=== PATIENT | male | born 1960 | race Hispanic/Latino ===

== ENCOUNTER 2020-03-25 23:07 | Emergency (ER) | payer SELFPAY | END 2020-03-25 23:45 | disposition left against medical advice (07) | LOC: ED 23:07 | DX: Z76.0 Encounter for issue of repeat prescription (principal); Z53.21 Procedure and treatment not carried out due to patient leaving prior to being seen by health care provider ==

== ENCOUNTER 2020-03-26 07:37 | Emergency (ER) | payer SELFPAY | END 2020-03-26 09:00 | LOC: ED 07:37 | DX: G40.909 Epilepsy, unspecified, not intractable, without status epilepticus (principal); Z53.21 Procedure and treatment not carried out due to patient leaving prior to being seen by health care provider ==

== ENCOUNTER 2020-09-09 10:43 | Inpatient (IN) | payer OTHER ==
[2020-09-09] MEDS ORDERED: levETIRAcetam 1000 MG/NS 0.75% 1,000 MG/100 ML BAG IV ONE ×2 (10:56→11:30)
[2020-09-09] MEDS ORDERED: SODIUM CHLORIDE 0.9% 1000 ML 1,000 ML IV ONE ×3 (11:14→13:53)
[2020-09-09] MEDS ORDERED: SUCCINYLCHOLINE CHLORIDE 200 MG/10 ML INJ MDV IV ONE (11:14)
[2020-09-09] MEDS ORDERED: levETIRAcetam 1,000 MG in SODIUM CHLORIDE 0.9% 100 ML IV ONE (11:17)
--- NOTE | 2020-09-09 11:24 | Emergency Department Report ---
ED Seizure HPI - General Stated Complaint: SEIZURE Time Seen by Provider: 09/09/20 11:12 - History of Present Illness Initial Comments: 59-year-old male, history of seizure disorder, ?liver cirrhosis, presents to ED from [facility] (incarcerated in July 2020, 2 months ago) with status epilepticus. Per EMS, patient has been actively seizing x30 minutes. Patient has received 20 mg of Valium from the [facility]. Upon EMS arrival, patient was still seizing. 2 mg of Ativan IM was given. Patient did require another 2 mg of Ativan from EMS. EMS unable to obtain an IV or IO. Seizures stopped upon ED arrival. O2 sats 91% on nonrebreather. Patient altered. Decision was made to intubate the patient for hypoxia and airway protection. MD Complaint: seizure -: minutes(s) (30) Description of Episode: tonic-clonic movement -: minutes(s) (30) Witnessed:: Yes Seizure History: known seizure disorder Place: other ([facility]) Treatments Prior to Arrival: benzodiazepines - Related Data Allergies Allergy/AdvReac Type Severity Reaction Status Date / Time chocolate flavor Allergy Unknown Verified 09/09/20 14:11 ED Review of Systems ROS: Stated complaint: SEIZURE Other details as noted in HPI Comment: Unobtainable due to pts medical conditions Neurological: other (Seizures reported) ED Physical Exam - General General appearance: obtunded - Head Head exam: Present: atraumatic, normocephalic - Eye Pupils: Present: other (Dilated bilaterally) - ENT ENT exam: Present: mucous membranes moist - Neck Neck exam: Present: normal inspection - Respiratory Respiratory exam: Present: normal lung sounds bilaterally. Absent: respiratory distress - Cardiovascular Cardiovascular Exam: Present: normal rhythm, tachycardia - GI/Abdominal GI/Abdominal exam: Present: soft. Absent: distended - Extremities Exam Extremities exam: Present: normal inspection - Neurological Exam Neurological exam: Present: other ([facility]) - Psychiatric Psychiatric exam: Present: normal affect, normal mood - Skin Skin exam: Present: diaphoretic ED Course Vital Signs 09/09/20 09/09/20 09/09/20 11:07 11:19 11:30 Temperature 97.7 F Pulse Rate 122 H 123 H Respiratory 21 17 Rate Blood Pressure 122/85 122/85 O2 Sat by Pulse 94 92 Oximetry 09/09/20 09/09/20 09/09/20 11:45 12:01 12:15 Temperature Pulse Rate 119 H 114 H 111 H Respiratory 19 18 16 Rate Blood Pressure 96/64 96/64 101/73 O2 Sat by Pulse 98 99 100 Oximetry 09/09/20 09/09/20 09/09/20 12:39 12:45 13:01 Temperature Pulse Rate 105 H 105 H 103 H Respiratory 16 16 Rate Blood Pressure 101/73 114/84 101/73 O2 Sat by Pulse 92 100 100 Oximetry 09/09/20 09/09/20 09/09/20 13:15 13:31 13:45 Temperature Pulse Rate 95 H 106 H 112 H Respiratory 16 18 16 Rate Blood Pressure 119/90 137/86 136/100 O2 Sat by Pulse 100 100 100 Oximetry 09/09/20 09/09/20 09/09/20 14:01 14:15 14:31 Temperature Pulse Rate 107 H 110 H 105 H Respiratory 20 19 24 Rate Blood Pressure 137/98 156/103 163/95 O2 Sat by Pulse 100 100 100 Oximetry 09/09/20 09/09/20 09/09/20 14:45 15:01 15:15 Temperature Pulse Rate 109 H 113 H 120 H Respiratory 22 25 H 19 Rate Blood Pressure 164/98 147/95 148/101 O2 Sat by Pulse 99 99 99 Oximetry 09/09/20 09/09/20 09/09/20 15:31 15:45 16:01 Temperature Pulse Rate 128 H 128 H 129 H Respiratory 16 22 24 Rate Blood Pressure 143/114 156/95 149/95 O2 Sat by Pulse 100 99 Oximetry 09/09/20 09/09/20 09/09/20 16:43 16:47 17:53 Temperature 102.5 F H Pulse Rate 129 H Respiratory 19 Rate Blood Pressure 149/95 O2 Sat by Pulse 99 Oximetry - Central Line Placement Right Femoral Consent Obtained: emergent situation Time Out Performed: Yes Patient Placed on Monitor/Pulse Ox: Yes Prep: mask, gown, gloves Central Line Prep: Chlorhexidine scrub Ultrasound Used for Placement: No Central Line Lumen Inserted: triple Reason for Insertion: Emergency Venous Access Bloods Obtained for Lab: No Central Line Position: good blood return, all ports aspirated, flus, sutured in place with nyl Dressing Applied: Tegaderm Patient Tolerated Procedure: well Complications: none - Intubation Time Out Performed: Yes Sedative: none Paralytic: Succinylcholine Mg Given: 100 Laryngoscope: fiberoptic video scope Size: 4 ET Tube Size: 7.5 Tube Secured Depth (cm): 22 Tube Secured Location: lips Tube Placement Confirmation: visualized tube passing t, equal breath sounds bilat, no breath sounds over epi, confirmation by capnometr Patient Tolerated Procedure: well Intubation Complications: none ED Medical Decision Making - Lab Data Result diagrams: 09/09/20 13:07 09/09/20 13:07 - EKG Data -: EKG Interpreted by Nd EKG shows normal: sinus rhythm, axis, QRS complexes, ST-T waves Rate: normal - EKG Data Interpretation: no acute changes, other (prolonged QT) - Radiology Data Radiology results: report reviewed, image reviewed - Medical Decision Making 59-year-old male presents to ED from [facility] and status epilepticus. History of seizure disorder, on Keppra daily. Patient required multiple doses of Valium and Ativan prior to ED arrival. Patient was intubated for airway protection and hypoxia. Chest x-ray showed left lower lobe opacity. Possible aspiration. CT head, C-spine are unremarkable for any acute findings. Patient given IV Keppra load here in the ED along with IV fluids and antibiotic coverage. Patient afebrile, WBCs of 13.8. Chemistry unremarkable except for elevation in AST and ALT of 304 and 436. EMS did report a history of possible liver cirrhosis as well. Tox screen only positive for benzodiazepines which patient received in the field. Patient currently on propofol drip. He will be admitted to the ICU by hospitalist, Dr. Powell, for further management. - Differential Diagnosis Status epilepticus, electrolyte abnormality, infection, intracranial abnorm Critical Care Time: Yes Critical care time in (mins) excluding proc time.: 35 Critical care attestation.: If time is entered above; I have spent that time in minutes in the direct care of this critically ill patient, excluding procedure time. Critical Care Time: 35 min ED Disposition Clinical Impression: Status epilepticus, Acute respiratory failure with hypoxia Disposition: OP ADMIT IP TO THIS HOSP Is pt being admited?: Yes Condition: Stable Time of Disposition: 14:28
[2020-09-09] MEDS ORDERED: NORepinephrine/NS 4 MG-250 ML 4 MG/250 ML BAG IV SCH (12:00)
--- NOTE | 2020-09-09 12:10 | XRay Report ---
CHEST 1 VIEW INDICATION: post-intubation; seizure. COMPARISON: None FINDINGS: Support devices: An endotracheal tube has been inserted which terminates 4.6 cm superior to the luis angel a. Heart: Within normal limits. Lungs/Pleura: There is patchy infiltrate or atelectasis in the medial left lower lobe. Otherwise the lungs are clear. No pleural effusion or pneumothorax. Additional findings: None. IMPRESSION: Adequate placement of the endotracheal tube. Left lower lobe opacity as described. Signer Name: Stevo Rogel Jr, MD Signed: 09/09/2020 12:05 PM Workstation Name: [id number]
--- NOTE | 2020-09-09 12:54 | Cat Scan Report ---
CT head/brain wo con, CT cervical spine wo con INDICATION: seizure. TECHNIQUE: CT head and cervical spine without contrast. All CT scans at this location are performed u sing CT dose reduction for ALARA by means of automated exposure control. COMPARISON: None. FINDINGS: HEAD: Intracranial: Left frontal encephalomalacia. Blanco-white matter differentiation is maintained. No intr acranial hemorrhage. No extra axial collection.. No hydrocephalus. No herniation. Periventricular and centrum semiovale white matter hypoattenuation most consistent with sequela of chronic microvascular disease. Sinuses: Paranasal sinuses and mastoid air cells are essentially clear. Orbits: Globes are intact Calvarium: Chronic nasal bone fractures. No acute fracture. CERVICAL: Alignment: Normal alignment. Vertebrae: No fracture. Vertebral body heights are preserved. C1 and C2 are congruent. Atlantooccipi aye joint is maintained. Spondylolysis: Moderate multilevel spondylosis. Foraminal narrowing is present at C4-C5. Soft tissues: No prevertebral soft tissue thickening. Additional findings: No significant additional findings. IMPRESSION: 1. No acute intracranial abnormality. 2.No cervical spine fracture. Signer Name: Milton Dooley MD Signed: 09/09/2020 12:50 PM Workstation Name: [id number]
--- NOTE | 2020-09-09 13:01 | History and Physical Report ---
History of Present Illness Chief complaint: He kept having a seizure History of present illness: 59 YO Male with Seizure Disorder presents to ED for evaluation. Patient is intubated and on ventilatory support at the time my evaluation is unable to provide history. Patient history taken from EMS staff, ED staff, as well as [facility] staff. As per staff, the patient experienced intractable seizures today. Patient was taken to the [facility] where he was treated with Valium 20 mg without improvement of symptoms. EMS was notified and upon arrival the patient was found to be in distress with large amount of vomitus in his oropharynx. The patient was subsequently transported to [facility] for further care and evaluation of the aforementioned symptoms. The patient was seen and evaluated in the emergency department. All lab and imaging studies reviewed. Patient was found to be unable to protect his airway and was intubated for airway protection. Patient chest x-ray revealed left-sided pn eumonia suspected secondary to aspiration which is complicated by sepsis as well as acute hypoxemic respiratory failure. The patient was admitted to ICU and initiated on sepsis protocol. No further history is obtainable. No prior admission for review. No medication listed at time of admission reconciliation. Advanced care planning conducted in ED. Past History Past Medical History: seizures Past Surgical History: No surgical history, Other (Unable to obtain) Social history: single. denies: smoking, alcohol abuse, prescription drug abuse Family history: no significant family history, other (Unable to obtain) Medications and Allergies Allergies Allergy/AdvReac Type Severity Reaction Status Date / Time chocolate flavor Allergy Unknown Verified 09/09/20 14:11 Active Meds: Active Medications Norepinephrine (Levophed Drip 4 Mg/Ns 250 Ml) 4 mg in 250 mls @ 7.5 mls/hr IV TITR ARIADNE; Protocol Propofol (Diprivan 10 Mg/Ml) 1,000 mg in 100 mls @ 1.995 mls/hr IV TITR ARIADNE; Protocol Review of Systems ROS unobtainable: due to endotracheal tube, due to mental status Exam - Constitutional Vitals: Temp Pulse Resp BP Pulse Ox 99 09/09/20 11:30 General appearance: Present: mild distress, cachectic, disheveled - EENT Eyes: Present: miosis ENT: hearing decreased - Neck Neck: Present: supple, normal ROM - Respiratory Respiratory effort: labored Respiratory: bilateral: diminished - Cardiovascular Heart Sounds: Present: S1 & S2. Absent: rub, click - Extremities Extremities: pulses symmetrical, No edema Peripheral Pulses: within normal limits - Abdominal General gastrointestinal: Present: soft, non-tender, non-distended, normal bowel sounds Male genitourinary: Present: normal - Integumentary Integumentary: Present: clear, warm, dry - Musculoskeletal Musculoskeletal: generalized weakness - Psychiatric Psychiatric: no appropriate mood/affect, no intact judgment & insight, no memory intact - Neurologic Neurologic: CNII-XII intact, no focal deficits, no moves all extremities, no gait normal Results - Labs CBC & Chem 7: 09/09/20 13:07 09/09/20 13:07 Assessment and Plan - Patient Problems (1) Sepsis Current Visit: Yes Status: Acute Qualifiers: Severe sepsis acute organ dysfunction type: acute respiratory failure Plan to address problem: sepsis protocol: Chest x-ray, CBC, CMP, IV antibiotic therapy, IV fluid resuscitation therapy, monitor urine output every shift, monitor fluid balance, serial lactic acid level, blood cultures., Maintain mean arterial pressure greater than or equal to 65, The high probability of a clinically significant, sudden or life threatening deterioration of the [cardiac, pulmonary, renal, infectious disease] system(s) required my full and direct attention, intervention and personal management. The aggregate critical care time was [95] minutes. This time is in addition to time spent performing reported procedures but includes the following: [x] Data Review and interpretation [x] Patient assessment and monitoring of vital signs [x] Documentation [x] Medication orders and management (2) Acute hypoxemic respiratory failure Current Visit: Yes Status: Acute Plan to address problem: Wean vent as tolerated, daily spontaneous breathing trial, daily arterial blood gas, sedation holiday, chest x-ray, supportive care (3) Aspiration pneumonia Current Visit: Yes Status: Acute Qualifiers: Laterality: left Lung location: lower lobe of lung Plan to address problem: Pneumonia protocol: Chest x-ray, CBC, CMP, IV antibiotic therapy, supplemental oxygen, pulse oximetry, blood culture. (4) Status epilepticus Current Visit: Yes Status: Acute Plan to address problem: IV benzodiazepine therapy, seizure protocol, supportive care. Neuro check. (5) DVT prophylaxis Current Visit: Yes Status: Acute Plan to address problem: SCD to bilateral lower extremities while in bed, prophylactic anticoagulation (6) Advance care planning Current Visit: Yes Status: Acute Plan to address problem: Disease education conducted, care plan discussed, diagnoses discussed, care plan discussed, patient histories discussed, +30 minutes.
[2020-09-09] MEDS ORDERED: ALBUTEROL 2.5 MG/3 ML NEBU IH PRN (13:04)
[2020-09-09] MEDS: metroNIDAZOLE/NS 500 MG/100 ML 500 MG/100 ML BAG IV SCH ×2 (13:48→22:18)
[2020-09-09 14:09] LABS: Basophils % (Auto) 0.3 % (0.0-1.8); Eosinophils % (Auto) 0.1 % (0.0-4.3); Hematocrit 38.6 % (35.5-45.6); Hemoglobin 13.3 gm/dl (11.8-15.2); Lymphocytes # (Auto) 1.1 K/mm3 (1.2-5.4); Lymphocytes % (Auto) 8.2 % (13.4-35.0); Mean Corpuscular HGB Conc 34 % (32-34); Mean Corpuscular Volume 94 fl (84-94); Monocytes # (Auto) 0.8 K/mm3 (0.0-0.8); Monocytes % (Auto) 5.5 % (0.0-7.3); Platelet Count 198 K/mm3 (140-440); Red Blood Count 4.09 M/mm3 (3.65-5.03); Red Cell Distribution Width 13.3 % (13.2-15.2)
[2020-09-09 14:19] LABS: INR 1.16 (0.87-1.13)
[2020-09-09 14:20] LABS: Partial Thromboplastin Time 29.5 Sec. (24.2-36.6)
[2020-09-09 14:29] LABS: Alanine Aminotransferase 436 units/L (7-56); Albumin 4.1 g/dL (3.9-5); Blood Urea Nitrogen 11 mg/dL (9-20); Calcium 8.5 mg/dL (8.4-10.2); Hemolysis Index 12
[2020-09-09 14:30] LABS: BUN/Creatinine Ratio 16; Bilirubin,Direct < 0.2 mg/dL (0-0.2)
[2020-09-09] MEDS: cefTRIAXone/NS 2 GM/100 ML 2 GM/100 ML BAG IV SCH (15:14)
[2020-09-09 15:17] LABS: Bilirubin,Urine NEG (Negative); Blood,Urine MOD (Negative); Color,Urine Yellow (Yellow); Hyaline Casts,Urine 1 /LPF; Mucus,Urine FEW /HPF; Protein,Urine <15 mg/dL mg/dL (Negative); Urobilinogen,Urine < 2.0 mg/dL (<2.0); WBC,Urine < 1.0 /HPF (0.0-6.0)
[2020-09-09] MEDS ORDERED: LORazepam 2 MG/ML VIAL IV PRN (15:31)
[2020-09-09] MEDS ORDERED: HALOPERIDOL LACTATE 5 MG/1 ML INJ IV PRN (15:31)
[2020-09-09 15:32] LABS: Amphetamine Screen,Urine Negative; Cannabinoid Screen,Urine Negative; Cocaine Screen,Urine Negative; Methadone Screen,Urine Negative; Opiate Screen,Urine Negative
[2020-09-09] MEDS: LORazepam 2 MG/ML VIAL IV PRN (15:47)
[2020-09-09 16:03] LABS: Benzodiazepines Screen,Urine Positive
[2020-09-09] MEDS: AZITHROMYCIN/NS 500 MG/250 ML 500 MG/250 ML BAG IV SCH (17:38)
[2020-09-09] MEDS: IBUPROFEN 600 MG TAB PO PRN (17:53)
--- NOTE | 2020-09-10 00:03 | Cat Scan Report ---
CT HEAD WITHOUT CONTRAST HISTORY: Changes in neuro assessment COMPARISON: Earlier the same day TECHNIQUE: CT imaging of the head was performed in the axial, sagittal, and coronal projections and bone algori thm in axial projection in the soft tissue algorithm. All CT scans at this location are performed using CT dose reduction for ALARA by means of automated e xposure control. CONTRAST: None. FINDINGS: Cerebral and Cerebellar Hemispheres: Again noted left frontal encephalomalacia. Mild diffuse cerebral atrophy is present. Moderate deep white matter disease consistent with microangiopathy. No evidence of mass or mass effect. No midline shift. No acute hemorrhage. No acute cortical infarction. No e xtra-axial fluid collection. Ventricles: Normal in size and configuration for age. Osseous Structures: No significant abnormality. Visualized Paranasal Sinuses: No significant abnormality. Additional Findings: None IMPRESSION: 1. No acute intracranial abnormality. No interval changes compared to exam of earlier the same day NOTE: Acute infarct may not be visible by noncontrast CT. Signer Name: Vaughn Latham MD Signed: 09/09/2020 11:58 PM Workstation Name: [id number]
[2020-09-10 05:17] LABS: Basophils % (Auto) 0.2 % (0.0-1.8); Hematocrit 38.9 % (35.5-45.6); Lymphocytes # (Auto) 1.2 K/mm3 (1.2-5.4); Mean Corpuscular HGB Conc 34 % (32-34); Mean Corpuscular Volume 95 fl (84-94); Monocytes # (Auto) 1.5 K/mm3 (0.0-0.8); Monocytes % (Auto) 7.9 % (0.0-7.3); Platelet Count 192 K/mm3 (140-440); Red Blood Count 4.09 M/mm3 (3.65-5.03); Red Cell Distribution Width 13.5 % (13.2-15.2)
[2020-09-10 05:42] LABS: Alanine Aminotransferase 386 units/L (7-56); Albumin 3.5 g/dL (3.9-5); Blood Urea Nitrogen 12 mg/dL (9-20); Calcium 7.9 mg/dL (8.4-10.2); Hemolysis Index 10
[2020-09-10 05:44] LABS: BUN/Creatinine Ratio 17
[2020-09-10] MEDS: metroNIDAZOLE/NS 500 MG/100 ML 500 MG/100 ML BAG IV SCH ×2 (06:03→14:50)
[2020-09-10] MEDS: levETIRAcetam 1,000 MG in DEXTROSE 5% IN WATER 100 ML IV SCH ×2 (09:00→21:00)
--- NOTE | 2020-09-10 09:13 | Consultation ---
History of Present Illness Consult date: 09/10/20 Reason for Consult: Recurrent seizure History of present illness: He kept having a seizure History of present illness: 59 YO Male with Seizure Disorder presents to ED for evaluation. Patient is intubated and on ventilatory support at the time my evaluation is unable to provide history. Patient history taken from EMS staff, ED staff, as well as [facility] staff. As per staff, the patient experienced intractable seizures today. Patient was taken to the [facility] where he was treated with Valium 20 mg without improvement of symptoms. EMS was notified and upon arrival the patient was found to be in distress with large amount of vomitus in his oropharynx. The patient was subsequently transported to [facility] for further care and evaluation of the aforementioned symptoms. The patient was se en and evaluated in the emergency department. All lab and imaging studies reviewed. Patient was found to be unable to protect his airway and was intubated for airway protection. Patient chest x-ray revealed left-sided pneumonia suspected secondary to aspiration which is complicated by sepsis as w ell as acute hypoxemic respiratory failure. The patient was admitted to ICU and initiated on sepsis protocol. No further history is obtainable. No prior admission for review. No medication listed at time of admission reconciliation. Advanced care planning conducted in ED. Past History Past Medical History: seizures Past Surgical History: No surgical history, Other (Unable to obtain) Social history: single. denies: smoking, alcohol abuse, prescription drug abuse Family history: no significant family history, other (Unable to obtain) Medications and Allergies Allergies Allergy/AdvReac Type Severity Reaction Status Date / Time chocolate flavor Allergy Unknown Verified 09/09/20 14:11 Active Meds: Active Medications Norepinephrine (Levophed Drip 4 Mg/Ns 250 Ml) 4 mg in 250 mls @ 7.5 mls/hr IV TITR ARIADNE; Protocol Propofol (Diprivan 10 Mg/Ml) 1,000 mg in 100 mls @ 1.995 mls/hr IV TITR ARIADNE; Protocol Review of Systems ROS unobtainable: due to endotracheal tube, due to mental status Past History Past Medical History: seizures Past Surgical History: No surgical history, Other (Unable to obtain) Social history: single. denies: smoking, alcohol abuse, prescription drug abuse Family history: no significant family history, other (Unable to obtain) Medications and Allergies Allergies Allergy/AdvReac Type Severity Reaction Status Date / Time chocolate flavor Allergy Unknown Verified 09/09/20 14:11 Active Meds: Active Medications Albuterol (Albuterol 2.5 Mg/3 Ml Nebu) 2.5 mg IH Q3HRT PRN PRN Reason: Shortness Of Breath Haloperidol Lactate (Haloperidol Lactate 5 Mg/1 Ml Inj) 5 mg IV Q1HR PRN PRN Reason: Unrespon. to mult. doses BZD's Norepinephrine (Levophed Drip 4 Mg/Ns 250 Ml) 4 mg in 250 mls @ 7.5 mls/hr IV TITR ARIADNE; Protocol Propofol (Diprivan 10 Mg/Ml) 1,000 mg in 100 mls @ 1.995 mls/hr IV TITR ARIADNE; Protocol Last Titration: 09/10/20 02:15 Dose: 5 mcg/kg/min, 1.995 mls/hr Documented by: Metronidazole (Flagyl 500 Mg/100 Ml) 500 mg in 100 mls @ 100 mls/hr IV Q8HR ARIADNE; Protocol Last Admin: 09/10/20 06:03 Dose: 100 mls/hr Documented by: Ceftriaxone Sodium (Rocephin/Ns 2 Gm/100 Ml) 2 gm in 100 mls @ 200 mls/hr IV Q24H ARIADNE; Protocol Last Admin: 09/09/20 15:14 Dose: 200 mls/hr Documented by: Azithromycin (Zithromax/Ns) 500 mg in 250 mls @ 250 mls/hr IV Q24H ARIADNE; Protocol Last Admin: 09/09/20 17:38 Dose: 250 mls/hr Documented by: Levetiracetam 1,000 mg/ (Dextrose) 110 mls @ 400 mls/hr IV Q12HR ARIADNE Ibuprofen (Ibuprofen 600 Mg Tab) 600 mg PO Q8H PRN PRN Reason: fever Last Admin: 09/09/20 17:53 Dose: 600 mg Documented by: Lorazepam (Lorazepam 2 Mg/Ml Vial) 2 mg IV Q1HR PRN PRN Reason: CIWA-Ar 8-15 Last Admin: 09/09/20 15:47 Dose: 2 mg Documented by: Lorazepam (Lorazepam 2 Mg/Ml Vial) 4 mg IV Q1HR PRN PRN Reason: CIWA-Ar 16-25 Sodium Chloride (Sodium Chloride 0.9% 10 Ml Flush Syringe) 10 ml IV BID ARIADNE Last Admin: 09/09/20 22:19 Dose: 10 ml Documented by: Sodium Chloride (Sodium Chloride 0.9% 10 Ml Flush Syringe) 10 ml IV PRN PRN PRN Reason: LINE FLUSH Physical Examination - Vital Signs Vital Signs: Vital Signs Temp 97.7 F 09/09/20 11:07 - Constitutional General appearance: other (intubated responsive on maintenance dose of propofol move right side agitated no seizure is noted he follows command not moving left side ) - EENT EENT: Present: PERRL, mucous membranes moist - Respiratory Respiratory: Present: chest non-tender, lungs clear, rhonchi - Cardiovascular Cardiovascular: Present: regular rate, normal S1, normal S2 Extremities: Present: no peripheral edema bilatateraly, no clubbing, cyanosis - Gastrointestinal Gastrointestinal: Present: normoactive bowel sounds - Integumentary Integumentary: Present: normal - Neurologic Cranial nerve examination: PERRL, EOMI Sensorimotor examination: intact (pt is moving right side with no noticeable weakness left side is 2-3/5 upper and lower ,planter is down going ) Results - Laboratory Findings CBC and BMP: 09/10/20 05:00 09/10/20 05:00 Abnormal Lab Findings: Abnormal Labs 09/09/20 09/09/20 09/09/20 13:07 13:07 13:07 WBC 13.8 H MCV Lymph % (Auto) 8.2 L Coffee % (Auto) Lymph # (Auto) 1.1 L Coffee # (Auto) Seg Neutrophils % 85.9 H Seg Neutrophils # 11.8 H PT 15.3 H INR 1.16 H POC ABG pCO2 POC ABG pO2 ABG Oxyhemoglobin ABG Sodium ABG Chloride ABG Glucose Carboxyhemoglobin Sodium Creatinine 0.7 L Glucose 107 H Calcium AST 304 H ALT 436 H Ammonia Albumin Arterial Blood Glucose Arterial Blood Ionized Calcium 09/09/20 09/09/20 09/10/20 14:46 15:45 04:00 WBC MCV Lymph % (Auto) Coffee % (Auto) Lymph # (Auto) Coffee # (Auto) Seg Neutrophils % Seg Neutrophils # PT INR POC ABG pCO2 POC ABG pO2 148.6 H 25.0 L ABG Oxyhemoglobin 98.3 H 42.6 L ABG Sodium 133.7 L ABG Chloride 108.0 H ABG Glucose 106 H 105 H Carboxyhemoglobin 0.3 L Sodium Creatinine Glucose Calcium AST ALT Ammonia 19.0 L Albumin Arterial Blood Glucose 106 H 105 H Arterial Blood Ionized Calcium 4.3 L 4.3 L 09/10/20 09/10/20 09/10/20 04:13 05:00 05:00 WBC 19.2 H MCV 95 H Lymph % (Auto) 6.0 L Coffee % (Auto) 7.9 H Lymph # (Auto) Coffee # (Auto) 1.5 H Seg Neutrophils % 85.9 H Seg Neutrophils # 16.5 H PT INR POC ABG pCO2 31.1 L POC ABG pO2 140.4 H ABG Oxyhemoglobin 98.2 H ABG Sodium ABG Chloride ABG Glucose 115 H Carboxyhemoglobin 0.4 L Sodium 136 L Creatinine 0.7 L Glucose 105 H Calcium 7.9 L AST 351 H ALT 386 H Ammonia Albumin 3.5 L Arterial Blood Glucose 115 H Arterial Blood Ionized Calcium 4.4 L Assessment and Plan Assessment and Plan - Patient Problems # Sepsis -sepsis protocol: Chest x-ray, CBC, CMP, IV antibiotic therapy, IV fluid resuscitation therapy, monitor urine output every shift, monitor fluid balance, serial lactic acid level, blood cultures., Maintain mean arterial pressure greater than or equal to 65, # Acute hypoxemic respiratory failure -Wean vent as tolerated, daily spontaneous breathing trial, daily arterial blood gas, sedation holiday, chest x-ray, supportive care # Aspiration pneumonia -Pneumonia protocol: Chest x-ray, CBC, CMP, IV antibiotic therapy, supplemental oxygen, pulse oximetry, blood culture. # Status epilepticus -IV benzodiazepine therapy, seizure protocol, supportive care. Neuro check. -on Keppra 100 mg bid -he is alert interactive currently -Ct brain is unremarkable -EEG is pending -? hx of seizure ,can not take hx due to pt. being intubated and agitated #left sided weakness on exam today -Ct brain is unremarkable -new onset CVA can not be excluded -r/o ramsey paralysisi -pt. is intubated -need MRI brain w/o Qd -ASA 325 mg nj tube or 300 mg rectal -echo cardiogram Lipid profil -Lipitor 40 mg daily . # DVT prophylaxis -SCD to bilateral lower extremities while in bed, prophylactic anticoagulation # Advance care planning -Disease education conducted, care plan discussed, diagnoses discussed, care plan discussed, patient histories discussed, +30 minutes. The high probability of a clinically significant, sudden or life threatening deterioration of the [cardiac, pulmonary, renal, infectious disease] system(s) required my full and direct attention, intervention and personal management. The aggregate critical care time was [95] minutes. This time is in addition to time spent performing reported procedures but includes the following: [x] Data Review and interpretation [x] Patient assessment and monitoring of vital signs [x] Documentation [x] Medication orders and management
--- NOTE | 2020-09-10 10:18 | Electrocardiograph Report ---
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
--- NOTE | 2020-09-10 11:57 | Consultation ---
History of Present Illness Consult date: 09/10/20 Reason for consult: other (Seizures) History of present illness: Prisoner at [facility] with witnessed seizure event. Treated with valium. Then another seizure here after being transported to the hospital that aborted with ativan. Per ED, need airway protection so intubated. Loaded with Keppra and started on BID dosing. Also placed on CIWA protocol as there was concern for ETOH abuse. This am awake and following commands on 5 of diprovan. Minimal vent settings. Past History Past Medical History: seizures Past Surgical History: No surgical history, Other (Unable to obtain) Social history: single. denies: smoking, alcohol abuse, prescription drug abuse Family history: no significant family history, other (Unable to obtain) Medications and Allergies Allergies Allergy/AdvReac Type Severity Reaction Status Date / Time chocolate flavor Allergy Unknown Verified 09/09/20 14:11 Active Meds: Active Medications Albuterol (Albuterol 2.5 Mg/3 Ml Nebu) 2.5 mg IH Q3HRT PRN PRN Reason: Shortness Of Breath Aspirin (Aspirin 325 Mg Tab) 325 mg PO QDAY ARIADNE Haloperidol Lactate (Haloperidol Lactate 5 Mg/1 Ml Inj) 5 mg IV Q1HR PRN PRN Reason: Unrespon. to mult. doses BZD's Norepinephrine (Levophed Drip 4 Mg/Ns 250 Ml) 4 mg in 250 mls @ 7.5 mls/hr IV TITR ARIADNE; Protocol Propofol (Diprivan 10 Mg/Ml) 1,000 mg in 100 mls @ 1.995 mls/hr IV TITR ARIADNE; Protocol Last Titration: 09/10/20 10:16 Dose: 0 mcg/kg/min, 0 mls/hr Documented by: Metronidazole (Flagyl 500 Mg/100 Ml) 500 mg in 100 mls @ 100 mls/hr IV Q8HR ARIADNE; Protocol Last Admin: 09/10/20 06:03 Dose: 100 mls/hr Documented by: Ceftriaxone Sodium (Rocephin/Ns 2 Gm/100 Ml) 2 gm in 100 mls @ 200 mls/hr IV Q24H ARIADNE; Protocol Last Admin: 09/09/20 15:14 Dose: 200 mls/hr Documented by: Azithromycin (Zithromax/Ns) 500 mg in 250 mls @ 250 mls/hr IV Q24H ARIADNE; Protocol Last Admin: 09/09/20 17:38 Dose: 250 mls/hr Documented by: Levetiracetam 1,000 mg/ (Dextrose) 110 mls @ 400 mls/hr IV Q12HR ARIADNE Ibuprofen (Ibuprofen 600 Mg Tab) 600 mg PO Q8H PRN PRN Reason: fever Last Admin: 09/09/20 17:53 Dose: 600 mg Documented by: Lorazepam (Lorazepam 2 Mg/Ml Vial) 2 mg IV Q1HR PRN PRN Reason: LAURENT-Luis 8-15 Last Admin: 09/09/20 15:47 Dose: 2 mg Documented by: Lorazepam (Lorazepam 2 Mg/Ml Vial) 4 mg IV Q1HR PRN PRN Reason: Imelda 16-25 Sodium Chloride (Sodium Chloride 0.9% 10 Ml Flush Syringe) 10 ml IV BID ARIADNE Last Admin: 09/10/20 09:20 Dose: 10 ml Documented by: Sodium Chloride (Sodium Chloride 0.9% 10 Ml Flush Syringe) 10 ml IV PRN PRN PRN Reason: LINE FLUSH Review of Systems ROS unobtainable: due to endotracheal tube Physical Examination Vital signs: Vital Signs Temp 97.7 F 09/09/20 11:07 General appearance: alert, other (appears older than stated age) Eyes: non-icteric ENT: other (orally intubated) Effort: normal Ascultation: Bilateral: clear Extremities: other (not able to move left side.) Results - Laboratory Findings CBC and BMP: 09/10/20 05:00 09/10/20 05:00 ABG ABG pH 7.444 (7.320-7.450) 09/10/20 04:13 POC ABG pCO2 31.1 mmHg (32.0-48.0) L 09/10/20 04:13 POC ABG pO2 140.4 mmHg (83-108) H 09/10/20 04:13 POC ABG HCO3 20.8 09/10/20 04:13 ABG O2 Saturation 98.9 (0-100) 09/10/20 04:13 PT/INR, D-dimer PT 15.3 Sec. (12.2-14.9) H 09/09/20 13:07 INR 1.16 (0.87-1.13) H 09/09/20 13:07 Abnormal lab findings: Abnormal Labs 09/09/20 09/09/20 09/09/20 13:07 13:07 13:07 WBC 13.8 H MCV Lymph % (Auto) 8.2 L Winkler % (Auto) Lymph # (Auto) 1.1 L Winkler # (Auto) Seg Neutrophils % 85.9 H Seg Neutrophils # 11.8 H PT 15.3 H INR 1.16 H POC ABG pCO2 POC ABG pO2 ABG Oxyhemoglobin ABG Sodium ABG Chloride ABG Glucose Carboxyhemoglobin Sodium Creatinine 0.7 L Glucose 107 H Calcium AST 304 H ALT 436 H Ammonia Albumin Arterial Blood Glucose Arterial Blood Ionized Calcium 09/09/20 09/09/20 09/10/20 14:46 15:45 04:00 WBC MCV Lymph % (Auto) Winkler % (Auto) Lymph # (Auto) Winkler # (Auto) Seg Neutrophils % Seg Neutrophils # PT INR POC ABG pCO2 POC ABG pO2 148.6 H 25.0 L ABG Oxyhemoglobin 98.3 H 42.6 L ABG Sodium 133.7 L ABG Chloride 108.0 H ABG Glucose 106 H 105 H Carboxyhemoglobin 0.3 L Sodium Creatinine Glucose Calcium AST ALT Ammonia 19.0 L Albumin Arterial Blood Glucose 106 H 105 H Arterial Blood Ionized Calcium 4.3 L 4.3 L 09/10/20 09/10/20 09/10/20 04:13 05:00 05:00 WBC 19.2 H MCV 95 H Lymph % (Auto) 6.0 L Winkler % (Auto) 7.9 H Lymph # (Auto) Winkler # (Auto) 1.5 H Seg Neutrophils % 85.9 H Seg Neutrophils # 16.5 H PT INR POC ABG pCO2 31.1 L POC ABG pO2 140.4 H ABG Oxyhemoglobin 98.2 H ABG Sodium ABG Chloride ABG Glucose 115 H Carboxyhemoglobin 0.4 L Sodium 136 L Creatinine 0.7 L Glucose 105 H Calcium 7.9 L AST 351 H ALT 386 H Ammonia Albumin 3.5 L Arterial Blood Glucose 115 H Arterial Blood Ionized Calcium 4.4 L - Diagnostic Findings Chest x-ray: image reviewed Assessment and Plan 59 y/o male with seizure activity and altered mental state requiring mechanical ventilation. 1. Extubate 2. Follow up neurology recs 3. Post extubation, if no seizures, will transfer out. CCT 31 minutes.
[2020-09-10] MEDS: ASPIRIN 325 MG TAB PO SCH (14:50)
[2020-09-10 14:52] LABS: Chol/HDL Ratio 2.66 %
[2020-09-10] MEDS: cefTRIAXone/NS 2 GM/100 ML 2 GM/100 ML BAG IV SCH (15:09)
[2020-09-10] MEDS: AZITHROMYCIN/NS 500 MG/250 ML 500 MG/250 ML BAG IV SCH (15:10)
[2020-09-10] MEDS ORDERED: DEXTROSE 50% IN WATER (25GM) 50 ML SYRINGE IV PRN (17:18)
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
[2020-09-10] MEDS: INSULIN LISPRO 100 UNIT/ML SUB-Q SCH ×2 (18:07→21:02)
[2020-09-10] MEDS: HEPARIN 5,000 UNIT/1 ML VIAL SUB-Q SCH (21:00)
[2020-09-10] MEDS: IBUPROFEN 600 MG TAB PO PRN (21:00)
[2020-09-11 05:32] LABS: Hematocrit 42.3 % (35.5-45.6); Hemoglobin 14.4 gm/dl (11.8-15.2); Mean Corpuscular HGB Conc 34 % (32-34); Mean Corpuscular Volume 95 fl (84-94); Platelet Count 168 K/mm3 (140-440); Red Blood Count 4.43 M/mm3 (3.65-5.03); Red Cell Distribution Width 13.6 % (13.2-15.2)
[2020-09-11 06:04] LABS: Blood Urea Nitrogen 12 mg/dL (9-20); Calcium 8.6 mg/dL (8.4-10.2); Hemolysis Index 107
[2020-09-11 06:10] LABS: BUN/Creatinine Ratio 24
[2020-09-11] MEDS: INSULIN LISPRO 100 UNIT/ML SUB-Q SCH ×4 (07:39→21:51)
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
[2020-09-11] MEDS: HYDROcodone/ACETAMINOPHEN 5-325 MG TAB PO PRN ×2 (09:10→16:10)
[2020-09-11] MEDS: ASPIRIN 325 MG TAB PO SCH (09:10)
[2020-09-11] MEDS: HEPARIN 5,000 UNIT/1 ML VIAL SUB-Q SCH ×2 (09:10→21:44)
[2020-09-11] MEDS: levETIRAcetam 1,000 MG in DEXTROSE 5% IN WATER 100 ML IV SCH ×2 (10:20→21:44)
[2020-09-11] MEDS ORDERED: SUCCINYLCHOLINE CHLORIDE 200 MG/10 ML INJ MDV ONE (11:07)
--- NOTE | 2020-09-11 14:46 | XRay Report ---
ABDOMEN 2 VIEWS INDICATION / CLINICAL INFORMATION: clearance for MRI. COMPARISON: None available. FINDINGS: TUBES / LINES: None. BOWEL GAS PATTERN: Nonobstructive bowel gas pattern. Abundant fecal material noted throughout the col on and rectal vault. FREE AIR / EXTRALUMINAL GAS: None seen. ADDITIONAL FINDINGS: Plate and screw ORIF in the area of the left SI joint. Partially visualized juani steve screw fixation of the left proximal femur. Remote trauma partially visualized of left pubic tuber francisco javier and symphysis. CHEST: Visualized chest shows no significant abnormality. IMPRESSION: 1. ORIF of left SI joint. 2. Partially visualized fixation of left proximal femur. 3. Abundant fecal material noted throughout the colon. Correlate for signs and symptoms of constipati on. 4. Remote trauma noted of left tibia tubercle and pubic symphysis Signer Name: Arsalan Gilman MD Signed: 09/11/2020 2:41 PM Workstation Name: [id number]
--- NOTE | 2020-09-11 14:49 | XRay Report ---
SKULL 2 VIEW(S) INDICATION / CLINICAL INFORMATION: clearance for MRI COMPARISON: None available. FINDINGS: BONES: No acute fracture. No osseous lesion. Numerous dental caries are noted. SOFT TISSUES: No significant abnormality. ADDITIONAL FINDINGS: No radiopaque retained foreign bodies. IMPRESSION: 1. No evidence of radiopaque retained foreign bodies. Signer Name: Arsalan Gilman MD Signed: 09/11/2020 2:44 PM Workstation Name: [id number]
[2020-09-11] MEDS: cefTRIAXone/NS 2 GM/100 ML 2 GM/100 ML BAG IV SCH (16:10)
[2020-09-11] MEDS: AZITHROMYCIN/NS 500 MG/250 ML 500 MG/250 ML BAG IV SCH (17:56)
[2020-09-12] MEDS: LORazepam 2 MG/ML VIAL IV PRN (04:01)
[2020-09-12 06:29] LABS: Hematocrit 40.1 % (35.5-45.6); Hemoglobin 13.8 gm/dl (11.8-15.2); Mean Corpuscular HGB Conc 34 % (32-34); Mean Corpuscular Volume 95 fl (84-94); Platelet Count 172 K/mm3 (140-440); Red Blood Count 4.22 M/mm3 (3.65-5.03); Red Cell Distribution Width 13.6 % (13.2-15.2)
[2020-09-12 06:42] LABS: Blood Urea Nitrogen 14 mg/dL (9-20); Calcium 9.2 mg/dL (8.4-10.2); Hemolysis Index 64
[2020-09-12 06:47] LABS: BUN/Creatinine Ratio 28
[2020-09-12] MEDS: INSULIN LISPRO 100 UNIT/ML SUB-Q SCH ×4 (09:01→21:23)
--- NOTE | 2020-09-12 09:14 | Progress Note ---
Assessment and Plan Assessment and Plan - Patient Problems # Sepsis -sepsis protocol: Chest x-ray, CBC, CMP, IV antibiotic therapy, IV fluid resuscitation therapy, monitor urine output every shift, monitor fluid balance, serial lactic acid level, blood cultures., Maintain mean arterial pressure greater than or equal to 65, # Acute hypoxemic respiratory failure -extubated # Aspiration pneumonia -Pneumonia protocol: Chest x-ray, CBC, CMP, IV antibiotic therapy, supplemental oxygen, pulse oximetry, blood culture. # Status epilepticus -IV benzodiazepine therapy, seizure protocol, supportive care. Neuro check. -on Keppra 1000 mg bid -he is alert interactive currently -Ct brain is unremarkable -EEG is with diffuse slowing -According to him he is with hx of seizure for over 10 years , average one a month at least he had seizure yesterday ? was given ativan not clear if for seizure or agitation !!! MRI is on hold ? metal not sure if he had metal need Xry face he is with multiple back and hip surgery with carmelita placment #left sided weakness on exam with possible left rotator cuff !!! -Ct brain is unremarkable -new onset CVA can not be excluded -r/o ramsey paralysisi --need MRI brain w/o Qd -- Need mri left shoulder -ASA 81 mg dg -echo cardiogram is pending Lipid profil,LDL#53 -Lipitor 40 mg daily . -Xry skul is negative for metal -Xry abdomen showed left hip surgery # DVT prophylaxis -SCD to bilateral lower extremities while in bed, prophylactic anticoagulation # Advance care planning -Disease education conducted, care plan discussed, diagnoses discussed, care plan discussed, patient histories discussed, +30 minutes. PLAN 1- Advance keppra to 1500 mg bid 2- Need MRI brain and left shoulder if can not be done at least Ct left shoulder ? rotator cuff 3- Xry skul is negative 4-Xry abdomen showed left hip surgery 5- Pt therapy will follow as needed Subjective Date of service: 09/12/20 Principal diagnosis: Sizure and alcoholism Interval history: pt. is sleepy this am According to him he had seizure yesterday he blames his seizure on eating chocolates !!! he is complaining of left shoulder pain related to injury last week According to him he drinks Vodka daily Objective - Vital Sign Vital Signs - 12hr 09/11/20 09/11/20 09/12/20 22:00 23:38 03:53 Temperature 98.1 F 97.9 F Pulse Rate 95 H 108 H 97 H Respiratory 16 16 Rate Blood Pressure 115/75 135/96 O2 Sat by Pulse 95 92 Oximetry 09/12/20 09/12/20 07:21 08:09 Temperature 98.0 F Pulse Rate 108 H Respiratory 18 Rate Blood Pressure 124/75 O2 Sat by Pulse 91 98 Oximetry - General Apperance Constitutional: other (uncomfrtable with left shoulder pain ) - EENT EENT: PERRL, mucous membranes moist - Respiratory Respiratory: chest non-tender, lungs clear, rhonchi - Cardiovascular Cardiovascular: normal S1, normal S2 Extremities: no peripheral edema bilat, no clubbing, cyanosis - Gastrointestinal Gastrointestinal: normoactive bowel sounds - Integumentary Integumentary: normal - Neurologic Cranial nerve examination: PERRL, EOMI, other Speech examination: intact Detailed motor examination: other (elft side limited movment related to shoulder tenderness could not hold arm above 40 degree ) - Laboratory Findings CBC and BMP: 09/12/20 04:31 09/12/20 04:31 Abnormal Lab Findings: Abnormal Labs 09/09/20 09/09/20 09/09/20 13:07 13:07 13:07 WBC 13.8 H MCV MCH Lymph % (Auto) 8.2 L [place] % (Auto) Lymph # (Auto) 1.1 L [place] # (Auto) Seg Neutrophils % 85.9 H Seg Neutrophils # 11.8 H PT 15.3 H INR 1.16 H POC ABG pCO2 POC ABG pO2 ABG Oxyhemoglobin ABG Sodium ABG Chloride ABG Glucose Carboxyhemoglobin Sodium Creatinine 0.7 L Glucose 107 H POC Glucose Calcium AST 304 H ALT 436 H Ammonia Albumin HDL Cholesterol Arterial Blood Glucose Arterial Blood Ionized Calcium 09/09/20 09/09/20 09/10/20 14:46 15:45 04:00 WBC MCV MCH Lymph % (Auto) [place] % (Auto) Lymph # (Auto) [place] # (Auto) Seg Neutrophils % Seg Neutrophils # PT INR POC ABG pCO2 POC ABG pO2 148.6 H 25.0 L ABG Oxyhemoglobin 98.3 H 42.6 L ABG Sodium 133.7 L ABG Chloride 108.0 H ABG Glucose 106 H 105 H Carboxyhemoglobin 0.3 L Sodium Creatinine Glucose POC Glucose Calcium AST ALT Ammonia 19.0 L Albumin HDL Cholesterol Arterial Blood Glucose 106 H 105 H Arterial Blood Ionized Calcium 4.3 L 4.3 L 09/10/20 09/10/20 09/10/20 04:13 05:00 05:00 WBC 19.2 H MCV 95 H MCH Lymph % (Auto) 6.0 L [place] % (Auto) 7.9 H Lymph # (Auto) [place] # (Auto) 1.5 H Seg Neutrophils % 85.9 H Seg Neutrophils # 16.5 H PT INR POC ABG pCO2 31.1 L POC ABG pO2 140.4 H ABG Oxyhemoglobin 98.2 H ABG Sodium ABG Chloride ABG Glucose 115 H Carboxyhemoglobin 0.4 L Sodium 136 L Creatinine 0.7 L Glucose 105 H POC Glucose Calcium 7.9 L AST 351 H ALT 386 H Ammonia Albumin 3.5 L HDL Cholesterol Arterial Blood Glucose 115 H Arterial Blood Ionized Calcium 4.4 L 09/10/20 09/10/20 09/10/20 05:00 10:54 15:29 WBC MCV MCH Lymph % (Auto) [place] % (Auto) Lymph # (Auto) [place] # (Auto) Seg Neutrophils % Seg Neutrophils # PT INR POC ABG pCO2 POC ABG pO2 ABG Oxyhemoglobin ABG Sodium 130.8 L ABG Chloride ABG Glucose 108 H Carboxyhemoglobin 0.1 L Sodium Creatinine Glucose POC Glucose 106 H Calcium AST ALT Ammonia Albumin HDL Cholesterol 36 L Arterial Blood Glucose 108 H Arterial Blood Ionized Calcium 4.4 L 09/11/20 09/11/20 09/12/20 05:07 05:07 04:31 WBC 14.7 H MCV 95 H 95 H MCH 33 H 33 H Lymph % (Auto) [place] % (Auto) Lymph # (Auto) [place] # (Auto) Seg Neutrophils % Seg Neutrophils # PT INR POC ABG pCO2 POC ABG pO2 ABG Oxyhemoglobin ABG Sodium ABG Chloride ABG Glucose Carboxyhemoglobin Sodium 134 L Creatinine 0.5 L Glucose POC Glucose Calcium AST ALT Ammonia Albumin HDL Cholesterol Arterial Blood Glucose Arterial Blood Ionized Calcium 09/12/20 04:31 WBC MCV MCH Lymph % (Auto) [place] % (Auto) Lymph # (Auto) [place] # (Auto) Seg Neutrophils % Seg Neutrophils # PT INR POC ABG pCO2 POC ABG pO2 ABG Oxyhemoglobin ABG Sodium ABG Chloride ABG Glucose Carboxyhemoglobin Sodium 134 L Creatinine 0.5 L Glucose POC Glucose Calcium AST ALT Ammonia Albumin HDL Cholesterol Arterial Blood Glucose Arterial Blood Ionized Calcium
[2020-09-12] MEDS ORDERED: ASPIRIN 325 MG TAB PO SCH (09:30)
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
[2020-09-12] MEDS: ASPIRIN EC 81 MG TAB PO SCH (11:52)
[2020-09-12] MEDS: HEPARIN 5,000 UNIT/1 ML VIAL SUB-Q SCH ×2 (11:52→21:22)
[2020-09-12] MEDS: levETIRAcetam 500 MG/5 ML ORAL LIQD PO SCH ×2 (11:52→21:23)
[2020-09-12] MEDS: cefTRIAXone/NS 2 GM/100 ML 2 GM/100 ML BAG IV SCH (18:01)
[2020-09-12] MEDS: AZITHROMYCIN/NS 500 MG/250 ML 500 MG/250 ML BAG IV SCH (18:10)
[2020-09-13] MEDS: INSULIN LISPRO 100 UNIT/ML SUB-Q SCH ×4 (08:41→22:47)
[2020-09-13] MEDS: HYDROcodone/ACETAMINOPHEN 5-325 MG TAB PO PRN (08:41)
--- NOTE | 2020-09-13 10:40 | XRay Report ---
LEFT SHOULDER 3 VIEWS INDICATION / CLINICAL INFORMATION: Left shoulder pain/deformity. COMPARISON: None available. FINDINGS: BONES / JOINT(S): There are moderate degenerative changes involving the glenohumeral joint. There are one or 2 probable intra-articular loose bodies along the inferior aspect of the glenohumeral joint s pace. There are also milder degenerative changes involving the acromioclavicular joint and humeral he ad superolaterally. I see no evidence of acute fracture, subluxation or destructive lesion. SOFT TISSUES: No significant abnormality. ADDITIONAL FINDINGS: There is patchy parenchymal disease in the left mid to lower lung, significantly increased since CXR on 09/09/20. IMPRESSION: 1. Osteoarthritis involving the left shoulder with one or 2 intra-articular loose bodies overlying th e glenohumeral joint. 2. Patchy parenchymal disease in the left mid to lower lung has increased significantly and is likely related to pneumonia or aspiration. Signer Name: Tereso Balderas MD Signed: 09/13/2020 10:36 AM Workstation Name: [id number]
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
[2020-09-13] MEDS: levETIRAcetam 500 MG/5 ML ORAL LIQD PO SCH ×2 (11:33→21:19)
[2020-09-13] MEDS: HEPARIN 5,000 UNIT/1 ML VIAL SUB-Q SCH ×2 (11:33→21:19)
[2020-09-13] MEDS: ASPIRIN EC 81 MG TAB PO SCH (11:34)
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
[2020-09-13] MEDS: LORazepam 2 MG/ML VIAL IV PRN (14:15)
--- NOTE | 2020-09-13 18:01 | XRay Report ---
CHEST 2 VIEWS INDICATION / CLINICAL INFORMATION: Pneumonia. COMPARISON: 09/09/20. FINDINGS: SUPPORT DEVICES: The endotracheal tube has been removed. HEART / MEDIASTINUM: The heart size and pulmonary vasculature are normal. LUNGS / PLEURA: There is mild to moderate patchy parenchymal disease in the left lower lung, signific antly increased. The right lung is clear. There is no evidence of pleural effusion. No pneumothorax. ADDITIONAL FINDINGS: No significant additional findings. IMPRESSION: Increasing pneumonia in the left lower lung. Signer Name: Tereso Balderas MD Signed: 09/13/2020 5:57 PM Workstation Name: [id number]
--- NOTE | 2020-09-13 18:33 | Magnetic Resonance Report ---
MR brain wo/w con INDICATION / CLINICAL INFORMATION: 59 years Male; Seizure disorder. TECHNIQUE: Multiplanar, multisequence MR images of the brain were obtained. COMPARISON: CT-09/09/2020 FINDINGS: BRAIN / INTRACRANIAL CONTENTS: Encephalomalacia seen in the superior frontal gyral region on the left anteromedially, which was also seen on prior exam. Branch FREDDY infarct or prior trauma suspected. Mild to moderate, diffuse cerebral and cerebellar atrophy. Moderate to marked degree of hippocampal a trophy suggested bilaterally. There are moderate to marked, confluent areas of increased signal intensity on FLAIR imaging in the w lester matter of the cerebral hemispheres, as well as the gangliocapsular regions. Findings in the righ t cerebral hemisphere greater than the left. These are nonspecific findings and may be related to mary roangiopathy (hypertension, diabetes, atherosclerosis), given the patient's age. Mild pontine diseas e noted. Overall, findings are greater than expected for patient's age. Otherwise, no acute ischemia, acute hemorrhage, or hydrocephalus. CRANIOCERVICAL JUNCTION: No significant abnormality. VASCULAR FLOW-VOIDS: No significant abnormality. ORBITS: No significant abnormality of visualized orbits. SINUSES / MASTOIDS: Mild to moderate mucosal thickening seen in the ethmoids and right sphenoid sinus . Presumed, subcutaneous sebaceous cyst seen in the right malar region. ADDITIONAL FINDINGS: None. IMPRESSION: 1. No focal mass, hemorrhage, hydrocephalus, or acute ischemia. 2. Area of encephalomalacia as described above. Signer Name: Tony Lackey MD, III Signed: 09/13/2020 6:28 PM Workstation Name: [id number]
[2020-09-13] MEDS: AZITHROMYCIN 250 MG TAB PO SCH (19:46)
[2020-09-14] MEDS: HYDROcodone/ACETAMINOPHEN 5-325 MG TAB PO PRN ×3 (05:10→21:37)
[2020-09-14] MEDS: INSULIN LISPRO 100 UNIT/ML SUB-Q SCH ×4 (08:18→22:00)
[2020-09-14] MEDS: IBUPROFEN 600 MG TAB PO PRN (10:00)
[2020-09-14] MEDS: ASPIRIN EC 81 MG TAB PO SCH (10:04)
[2020-09-14] MEDS: levETIRAcetam 500 MG/5 ML ORAL LIQD PO SCH ×2 (10:04→21:36)
[2020-09-14] MEDS: HEPARIN 5,000 UNIT/1 ML VIAL SUB-Q SCH ×2 (12:14→21:37)
--- NOTE | 2020-09-14 12:39 | Consultation ---
History of Present Illness - Reason for Consult Consult date: 09/14/20 - History of Present Illness 59-year-old man past medical history seizure disorder, alcohol abuse presented to hospital with acute hypoxic respiratory failure. He was intubated on presentation, and has since been extubated. He was found to be having intractable seizures while at the skilled nursing center and did not respond to immediate treatment, as such was transferred to the hospital. He was found to have vomit in his oropharynx. Febrile originally, afebrile for the past few days. White count 10.5. Normal renal function. Covid negative. Blood cultures no growth so far. Now on room air. Imaging personally viewed: Brain MRI: Encephalomalacia, no acute changes. Chest x-ray: Pneumonia lower left lung. Review of Systems: Bold if positive, otherwise negative General: fevers, chills, rigors HEENT: visual disturbance, diplopia, eye pain Respiratory: cough, sputum, hemoptysis, shortness of breath Cardiovascular: chest pain, syncope Gastrointestinal: nausea, vomiting, diarrhea, abdominal pain Genitourinary: dysuria, hematuria, flank pain Musculoskeletal: neck pain, back pain, joint pain, edema Neurologic: headaches, seizures Hematologic: easy bruising or bleeding Endocrine: night sweats, acute weight loss Skin: rash, jaundice, redness Psychiatric: suicidal, homicidal ideation Past History Past Medical History: seizures Past Surgical History: No surgical history, Other (Unable to obtain) Social history: single. denies: smoking, alcohol abuse, prescription drug abuse Family history: no significant family history, other (Unable to obtain) Medications and Allergies Allergies Allergy/AdvReac Type Severity Reaction Status Date / Time chocolate flavor Allergy Seizure Verified 09/11/20 08:42 Home Medications Medication Instructions Recorded Confirmed Last Taken Type Unobtainable 09/13/20 09/13/20 Unknown History Active Meds: Active Medications Hydrocodone Bitart/Acetaminophen (Hydrocodone/Acetaminophen 5-325 Mg Tab) 1 each PO Q6H PRN PRN Reason: Pain, Moderate (4-6) Last Admin: 09/14/20 12:11 Dose: 1 each Documented by: Albuterol (Albuterol 2.5 Mg/3 Ml Nebu) 2.5 mg IH Q3HRT PRN PRN Reason: Shortness Of Breath Aspirin (Aspirin Ec 81 Mg Tab) 81 mg PO QDAY ARIADNE Last Admin: 09/14/20 10:04 Dose: 81 mg Documented by: Azithromycin (Azithromycin 250 Mg Tab) 500 mg PO Q24H [facility]; Protocol Stop: 09/15/20 16:01 Last Admin: 09/13/20 19:46 Dose: 500 mg Documented by: Cefuroxime Axetil (Cefuroxime 250 Mg Tab) 500 mg PO Q12HR [facility] Stop: 09/15/20 13:59 Last Admin: 09/14/20 10:04 Dose: 500 mg Documented by: Dextrose (Dextrose 50% In Water (25gm) 50 Ml Syringe) 50 ml IV Q30MIN PRN; Protocol PRN Reason: Hypoglycemia Haloperidol Lactate (Haloperidol Lactate 5 Mg/1 Ml Inj) 5 mg IV Q1HR PRN PRN Reason: Unrespon. to mult. doses BZD's Heparin Sodium (Porcine) (Heparin 5,000 Unit/1 Ml Vial) 5,000 unit SUB-Q Q12HR [facility] Last Admin: 09/14/20 12:14 Dose: 5,000 unit Documented by: Ibuprofen (Ibuprofen 600 Mg Tab) 600 mg PO Q8H PRN PRN Reason: fever Last Admin: 09/14/20 10:00 Dose: 600 mg Documented by: Insulin Human Lispro (Insulin Lispro 100 Unit/Ml) 0 unit SUB-Q [facility]; Protocol Last Admin: 09/14/20 12:13 Dose: Not Given Documented by: Levetiracetam (Levetiracetam 500 Mg/5 Ml Oral Liqd) 1,500 mg PO BID [facility] Last Admin: 09/14/20 10:04 Dose: 1,500 mg Documented by: Lorazepam (Lorazepam 2 Mg/Ml Vial) 2 mg IV Q1HR PRN PRN Reason: LAURENT-Luis 8-15 Last Admin: 09/13/20 14:15 Dose: 2 mg Documented by: Lorazepam (Lorazepam 2 Mg/Ml Vial) 4 mg IV Q1HR PRN PRN Reason: LAURENT-Luis 16-25 Sodium Chloride (Sodium Chloride 0.9% 10 Ml Flush Syringe) 10 ml IV BID [facility] Last Admin: 09/14/20 10:04 Dose: 10 ml Documented by: Sodium Chloride (Sodium Chloride 0.9% 10 Ml Flush Syringe) 10 ml IV PRN PRN PRN Reason: LINE FLUSH Physical Examination - Physical Exam Narrative exam: Physical Exam: Constitutional: Alert, cooperative. No acute distress Head, Ears, Nose: Normocephalic, atraumatic. External ears, nose normal Eyes: Conjunctivae/corneas clear. No icterus. No ptosis. Neck: Supple, no meningeal signs Oral: dentition fair, no thrush Cardiovascular: S1, S2 normal. Respiratory: Good air entry, clear to auscultation bilaterally GI: Soft, non-tender; bowel sounds normal. No peritoneal signs. Musculoskeletal: No pedal edema, no cyanosis. Skin: No rash or abscess Hem/Lymphatic: No palpable cervical or supraclavicular nodes. No lymphangitis Psych: Mood ok. Affect normal Neurological: Awake, alert, oriented. No gross abnormality - Constitutional Vitals: Vital Signs Temp Pulse Resp BP Pulse Ox 97.6 F 73 18 101/59 98 09/14/20 07:47 09/14/20 07:47 09/14/20 07:47 09/14/20 07:47 09/14/20 07:47 Temperature -Last 24 Hours Temperature 97.6 F Temperature 98.4 F Temperature 98.2 F Temperature 97.9 F Results - Labs CBC & Chem 7: 09/12/20 04:31 09/12/20 04:31 Labs: Abnormal lab results 09/13/20 09/14/20 Range/Units 20:15 11:38 POC Glucose 116 H 162 H (70-105) mg/dL Assessment and Plan Cultures: Blood culture no growth so far A/P: 59 yo M PMHX seizures and EtOH admitted with seizures and likely aspiration PNA #Aspiration PNA: after being found with significant vomit in his oropharynx after his seizures. Was initially intubated for airway protection on admission, but now on room air. Given that, coupled with improving white count and being afebrile, I am presuming the worsening CXR is just imaging lag behind clinical improvement. #Seizures #EtOH abuse: [facility] protocol. Recs: -Continue cefuroxime and azithromycin (PO as patient extravasated lines). Complete 5 total days -Check procal in AM -Follow white count/fevers Thank you for the consult, we will continue to follow. Dilma Gimenez MD [facility] ([facility]) O: [phone] F: [phone]
--- NOTE | 2020-09-14 14:20 | Consultation ---
History of Present Illness - HPI Consult date: 09/14/20 Consult reason: joint pain History of present illness: 59 y/o male with c/o left shoulder pain after seizure episode, plain xrays taken reveal significant OA GH joint Past History Past Medical History: seizures Past Surgical History: No surgical history, Other (Unable to obtain) Social history: single. denies: smoking, alcohol abuse, prescription drug abuse Family history: no significant family history, other (Unable to obtain) Medications and Allergies Allergies Allergy/AdvReac Type Severity Reaction Status Date / Time chocolate flavor Allergy Seizure Verified 09/11/20 08:42 Home Medications Medication Instructions Recorded Confirmed Last Taken Type Unobtainable 09/13/20 09/13/20 Unknown History Active Meds: Active Medications Hydrocodone Bitart/Acetaminophen (Hydrocodone/Acetaminophen 5-325 Mg Tab) 1 each PO Q6H PRN PRN Reason: Pain, Moderate (4-6) Last Admin: 09/14/20 12:11 Dose: 1 each Documented by: Albuterol (Albuterol 2.5 Mg/3 Ml Nebu) 2.5 mg IH Q3HRT PRN PRN Reason: Shortness Of Breath Aspirin (Aspirin Ec 81 Mg Tab) 81 mg PO QDAY ARIADNE Last Admin: 09/14/20 10:04 Dose: 81 mg Documented by: Azithromycin (Azithromycin 250 Mg Tab) 500 mg PO Q24H ARIADNE; Protocol Stop: 09/15/20 16:01 Last Admin: 09/13/20 19:46 Dose: 500 mg Documented by: Cefuroxime Axetil (Cefuroxime 250 Mg Tab) 500 mg PO Q12HR ARIADNE Stop: 09/15/20 13:59 Last Admin: 09/14/20 10:04 Dose: 500 mg Documented by: Dextrose (Dextrose 50% In Water (25gm) 50 Ml Syringe) 50 ml IV Q30MIN PRN; Protocol PRN Reason: Hypoglycemia Haloperidol Lactate (Haloperidol Lactate 5 Mg/1 Ml Inj) 5 mg IV Q1HR PRN PRN Reason: Unrespon. to mult. doses BZD's Heparin Sodium (Porcine) (Heparin 5,000 Unit/1 Ml Vial) 5,000 unit SUB-Q Q12HR ARIADNE Last Admin: 09/14/20 12:14 Dose: 5,000 unit Documented by: Ibuprofen (Ibuprofen 600 Mg Tab) 600 mg PO Q8H PRN PRN Reason: fever Last Admin: 09/14/20 10:00 Dose: 600 mg Documented by: Insulin Human Lispro (Insulin Lispro 100 Unit/Ml) 0 unit SUB-Q ACHS [facility]; Protocol Last Admin: 09/14/20 12:13 Dose: Not Given Documented by: Levetiracetam (Levetiracetam 500 Mg/5 Ml Oral Liqd) 1,500 mg PO BID [facility] Last Admin: 09/14/20 10:04 Dose: 1,500 mg Documented by: Lorazepam (Lorazepam 2 Mg/Ml Vial) 2 mg IV Q1HR PRN PRN Reason: LAURENT-Luis 8-15 Last Admin: 09/13/20 14:15 Dose: 2 mg Documented by: Lorazepam (Lorazepam 2 Mg/Ml Vial) 4 mg IV Q1HR PRN PRN Reason: LAURENT-Luis 16-25 Sodium Chloride (Sodium Chloride 0.9% 10 Ml Flush Syringe) 10 ml IV BID [facility] Last Admin: 09/14/20 10:04 Dose: 10 ml Documented by: Sodium Chloride (Sodium Chloride 0.9% 10 Ml Flush Syringe) 10 ml IV PRN PRN PRN Reason: LINE FLUSH Physical Examination - Physical exam Narrative exam: left shoulder - tender at GH joint, dec AROM, no redness/erythema plain xrays left shoulder reviewed and show significant DJD at the GH joint Eyes: PERRL ENT: Positive: clear oral mucosa Respiratory effort: normal Respiratory: bilateral: CTA Rhythm: regular Heart Sounds: Positive: S1 & S2 General gastrointestinal: Positive: soft, non-tender, non-distended, normal bowel sounds Integumentary: clear, warm, dry Neurologic: Positive: CNII-XII intact, moves all extremities, gait normal. Negative: focal deficits Assessment and Plan osteoarthritis left glenohumeral joint recommend trial injection with depomedrol 80mg,done today w/o complication...
[2020-09-14 18:41] LABS: Hematocrit 36.8 % (35.5-45.6); Hemoglobin 12.5 gm/dl (11.8-15.2); Mean Corpuscular HGB Conc 34 % (32-34); Mean Corpuscular Volume 95 fl (84-94); Platelet Count 212 K/mm3 (140-440); Red Blood Count 3.88 M/mm3 (3.65-5.03); Red Cell Distribution Width 13.4 % (13.2-15.2)
[2020-09-14] MEDS: AZITHROMYCIN 250 MG TAB PO SCH (18:41)
[2020-09-14 19:00] LABS: Blood Urea Nitrogen 15 mg/dL (9-20); Calcium 8.9 mg/dL (8.4-10.2); Hemolysis Index 5
[2020-09-14 19:01] LABS: BUN/Creatinine Ratio 25
[2020-09-15] MEDS: LORazepam 2 MG/ML VIAL IV PRN (00:53)
[2020-09-15] MEDS: INSULIN LISPRO 100 UNIT/ML SUB-Q SCH ×4 (08:28→21:03)
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
[2020-09-15] MEDS: levETIRAcetam 500 MG/5 ML ORAL LIQD PO SCH ×2 (10:58→21:03)
[2020-09-15] MEDS: HEPARIN 5,000 UNIT/1 ML VIAL SUB-Q SCH ×2 (10:58→21:02)
[2020-09-15] MEDS: ASPIRIN EC 81 MG TAB PO SCH (10:58)
[2020-09-15] MEDS ORDERED: LORazepam 1 MG TAB PO ONE (13:00)
[2020-09-15] MEDS: HYDROcodone/ACETAMINOPHEN 5-325 MG TAB PO PRN (13:32)
--- NOTE | 2020-09-15 14:49 | Magnetic Resonance Report ---
MRI LEFT SHOULDER WITHOUT CONTRAST INDICATION / CLINICAL INFORMATION: left rotator cuff. Left shoulder pain/deformity. TECHNIQUE: Multiplanar, multisequence MR images were obtained. No contrast used. COMPARISON: None available. FINDINGS: SUPRASPINATUS: High-grade, near full-thickness tear of the distal supraspinatus tendon with no retrac tion or muscle atrophy. INFRASPINATUS: Tendinosis but no full-thickness tear. SUBSCAPULARIS: No significant abnormality. BICEPS TENDON, LONG HEAD: No significant abnormality. GLENOID LABRUM: Extensive degenerative fraying. ARTICULAR CARTILAGE: Moderately advanced glenohumeral degenerative arthrosis. JOINT SPACE / CAPSULE: Small joint effusion with small ossified bodies in the axillary recess and sub coracoid recess. ACROMION / A.C. JOINT: No significant abnormality. SUBACROMIAL/SUBDELTOID SPACE: Small amount of fluid in the subacromial space. BONES: No significant bone marrow edema. No fracture. No osseous lesion. SOFT TISSUES: Intramuscular edema of the posterior deltoid could be due to muscle strain or recent de ltoid injection. ADDITIONAL FINDINGS: None. IMPRESSION: 1. Moderately advanced glenohumeral degenerative arthrosis with small joint effusion and intra-articu lar bodies. 2. High-grade, near full-thickness tear of the distal supraspinatus tendon. Signer Name: Cristel Hu MD Signed: 09/15/2020 2:45 PM Workstation Name: [id number]
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
--- NOTE | 2020-09-15 15:03 | Progress Note ---
Assessment and Plan Cultures: Blood culture no growth so far A/P: 59 yo M PMHX seizures and EtOH admitted with seizures and likely aspiration PNA #Aspiration PNA: after being found with significant vomit in his oropharynx after his seizures. Was initially intubated for airway protection on admission, but now on room air. Given that, coupled with improving white count and being afebrile, I am presuming the worsening CXR is just imaging lag behind clinical improvement. #Seizures #EtOH abuse: CIWA protocol. Recs: -Continue cefuroxime and azithromycin (PO as patient extravasated lines). Complete 5 total days -Check procal in AM -Follow white count/fevers Thank you for the consult, we will continue to follow. Dilma Gimenez MD [facility] ([facility]) O: [phone] F: [phone] Subjective Date of service: 09/15/20 Principal diagnosis: Sizure and alcoholism Interval history: Afebrile, normal white count. Cultures remain negative. Imaging personally reviewed: Upper extremity MRI: Full-thickness tear of supraspinatus tendon Objective - Exam Narrative Exam: Physical Exam: Constitutional: Alert, cooperative. No acute distress Head, Ears, Nose: Normocephalic, atraumatic. External ears, nose normal Eyes: Conjunctivae/corneas clear. No icterus. No ptosis. Neck: Supple, no meningeal signs Oral: dentition fair, no thrush Cardiovascular: S1, S2 normal. Respiratory: Good air entry, clear to auscultation bilaterally GI: Soft, non-tender; bowel sounds normal. No peritoneal signs. Musculoskeletal: No pedal edema, no cyanosis. Skin: No rash or abscess Hem/Lymphatic: No palpable cervical or supraclavicular nodes. No lymphangitis Psych: Mood ok. Affect normal Neurological: Awake, alert, oriented. No gross abnormality - Constitutional Vitals: Vital Signs Temp Pulse Resp BP Pulse Ox 98.1 F 72 18 120/72 95 09/15/20 12:23 09/15/20 12:23 09/15/20 12:23 09/15/20 12:23 09/15/20 12:23 Temperature -Last 24 Hours Temperature 98.1 F Temperature 98.0 F Temperature 97.6 F Temperature 97.9 F Temperature 97.8 F Temperature 98.3 F - Labs CBC & Chem 7: 09/14/20 18:18 09/14/20 18:18 Labs: Abnormal lab results 09/14/20 09/14/20 09/14/20 Range/Units 17:12 18:18 18:18 MCV 95 H (84-94) fl Creatinine 0.6 L (0.8-1.3) mg/dL Glucose 133 H (75-100) mg/dL POC Glucose 114 H (70-105) mg/dL 09/14/20 09/15/20 09/15/20 Range/Units 19:57 07:29 11:16 MCV (84-94) fl Creatinine (0.8-1.3) mg/dL Glucose (75-100) mg/dL POC Glucose 178 H 164 H 107 H (70-105) mg/dL
[2020-09-15] MEDS: AZITHROMYCIN 250 MG TAB PO SCH (16:58)
[2020-09-15] MEDS ORDERED: LORazepam 2 MG TAB PO PRN (20:30)
[2020-09-15] MEDS ORDERED: chlordiazePOXIDE 25 MG CAP PO PRN ×2 (20:30)
[2020-09-15] MEDS: LORazepam 2 MG TAB PO PRN (20:44)
[2020-09-16] MEDS: INSULIN LISPRO 100 UNIT/ML SUB-Q SCH ×4 (08:12→21:43)
[2020-09-16] MEDS: HYDROcodone/ACETAMINOPHEN 5-325 MG TAB PO PRN ×3 (09:35→21:44)
[2020-09-16] MEDS: HEPARIN 5,000 UNIT/1 ML VIAL SUB-Q SCH ×2 (09:37→21:41)
[2020-09-16] MEDS: ASPIRIN EC 81 MG TAB PO SCH ×2 (09:40→09:47)
[2020-09-16] MEDS: levETIRAcetam 500 MG/5 ML ORAL LIQD PO SCH ×2 (09:40→21:40)
--- NOTE | 2020-09-16 10:25 | Progress Note ---
Assessment and Plan Cultures: Blood culture no growth so far A/P: 59 yo M PMHX seizures and EtOH admitted with seizures and likely aspiration PNA #Aspiration PNA: after being found with significant vomit in his oropharynx after his seizures. Was initially intubated for airway protection on admission, but now on room air. Given that, coupled with improving white count and being afebrile, I am presuming the worsening CXR is just imaging lag behind clinical improvement. #Seizures #EtOH abuse: CIWA protocol. Recs: -Continue cefuroxime and azithromycin (PO as patient extravasated lines). Complete 5 total days. -OK to do above on discharge -Procal normal after receiving a few days of antibiotics -Follow white count/fevers Thank you for the consult, we will continue to follow. Dilma Gimenez MD [facility] ([facility]) O: [phone] F: [phone] Subjective Date of service: 09/16/20 Principal diagnosis: Sizure and alcoholism Interval history: Afebrile and normal white count. Objective - Exam Narrative Exam: Physical Exam: Constitutional: Alert, cooperative. No acute distress Head, Ears, Nose: Normocephalic, atraumatic. External ears, nose normal Eyes: Conjunctivae/corneas clear. No icterus. No ptosis. Neck: Supple, no meningeal signs Oral: dentition fair, no thrush Cardiovascular: S1, S2 normal. Respiratory: Good air entry, clear to auscultation bilaterally GI: Soft, non-tender; bowel sounds normal. No peritoneal signs. Musculoskeletal: No pedal edema, no cyanosis. Skin: No rash or abscess Hem/Lymphatic: No palpable cervical or supraclavicular nodes. No lymphangitis Psych: Mood ok. Affect normal Neurological: Awake, alert, oriented. No gross abnormality - Constitutional Vitals: Vital Signs Temp Pulse Resp BP Pulse Ox 97.6 F 68 20 121/62 94 09/16/20 07:48 09/16/20 07:48 09/16/20 07:48 09/16/20 07:48 09/16/20 08:44 Temperature -Last 24 Hours Temperature 97.6 F Temperature 98.3 F Temperature 98.2 F Temperature 98.1 F Temperature 97.8 F Temperature 98.1 F - Labs CBC & Chem 7: 09/14/20 18:18 09/14/20 18:18 Labs: Abnormal lab results 09/15/20 09/15/20 09/15/20 Range/Units 07:29 11:16 16:26 POC Glucose 164 H 107 H 106 H (70-105) mg/dL 09/15/20 Range/Units 20:23 POC Glucose 134 H (70-105) mg/dL
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
[2020-09-16] MEDS: IBUPROFEN 600 MG TAB PO PRN (20:01)
[2020-09-17] MEDS: INSULIN LISPRO 100 UNIT/ML SUB-Q SCH ×4 (08:10→21:29)
[2020-09-17] MEDS: HEPARIN 5,000 UNIT/1 ML VIAL SUB-Q SCH ×2 (09:15→21:35)
[2020-09-17] MEDS: levETIRAcetam 500 MG/5 ML ORAL LIQD PO SCH ×2 (09:15→21:35)
[2020-09-17] MEDS: ASPIRIN EC 81 MG TAB PO SCH (09:15)
[2020-09-17] MEDS: HYDROcodone/ACETAMINOPHEN 5-325 MG TAB PO PRN ×3 (09:19→21:35)
[2020-09-17] MEDS: LORazepam 2 MG TAB PO PRN (10:56)
--- NOTE | 2020-09-17 11:17 | Progress Note ---
Assessment and Plan Cultures: Blood culture no growth so far A/P: 59 yo M PMHX seizures and EtOH admitted with seizures and likely aspiration PNA #Aspiration PNA: after being found with significant vomit in his oropharynx after his seizures. Was initially intubated for airway protection on admission, but now on room air. Given that, coupled with improving white count and being afebrile, I am presuming the worsening CXR is just imaging lag behind clinical improvement. #Seizures #EtOH abuse: CIWA protocol. Recs: -Compelted antibiotics. Thank you for the consult, we will sign off. Please call with new concerns. Dilma Gimenez MD [facility] ([facility]) O: [phone] F: [phone] Subjective Date of service: 09/17/20 Principal diagnosis: Sizure and alcoholism Interval history: Afebrile, normal white count. On room air. Objective - Exam Narrative Exam: Physical Exam: Constitutional: Alert, cooperative. No acute distress Head, Ears, Nose: Normocephalic, atraumatic. External ears, nose normal Eyes: Conjunctivae/corneas clear. No icterus. No ptosis. Neck: Supple, no meningeal signs Oral: dentition fair, no thrush Cardiovascular: S1, S2 normal. Respiratory: Good air entry, clear to auscultation bilaterally GI: Soft, non-tender; bowel sounds normal. No peritoneal signs. Musculoskeletal: No pedal edema, no cyanosis. Skin: No rash or abscess Hem/Lymphatic: No palpable cervical or supraclavicular nodes. No lymphangitis Psych: Mood ok. Affect normal Neurological: Awake, alert, oriented. No gross abnormality - Constitutional Vitals: Vital Signs Temp Pulse Resp BP Pulse Ox 98.9 F 65 20 110/71 96 09/17/20 07:26 09/17/20 10:58 09/17/20 07:26 09/17/20 07:26 09/17/20 07:26 Temperature -Last 24 Hours Temperature 98.9 F Temperature 98.3 F Temperature 97.9 F Temperature 98.4 F Temperature 97.3 F Temperature 98.3 F - Labs CBC & Chem 7: 09/14/20 18:18 09/14/20 18:18 Labs: Abnormal lab results 09/16/20 09/16/20 Range/Units 15:28 20:28 POC Glucose 135 H 130 H (70-105) mg/dL
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
[2020-09-18] MEDS: HYDROcodone/ACETAMINOPHEN 5-325 MG TAB PO PRN (04:13)
[2020-09-18 06:07] VITALS: BP 100/64
[2020-09-18] MEDS: levETIRAcetam 500 MG/5 ML ORAL LIQD PO SCH (09:20)
[2020-09-18] MEDS: HEPARIN 5,000 UNIT/1 ML VIAL SUB-Q SCH (09:21)
[2020-09-18] MEDS: ASPIRIN EC 81 MG TAB PO SCH (09:21)
[2020-09-18] MEDS: INSULIN LISPRO 100 UNIT/ML SUB-Q SCH (09:22)
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
--- NOTE | 2020-09-23 10:48 | Electrocardiograph Report ---
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
--- NOTE | 2020-09-23 10:51 | Electrocardiograph Report ---
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
== END 2020-09-18 15:45 | disposition home or self-care (01) | DRG 871 ==
LOC: EEVIPCON 10:43 → ED 10:43 → EEVIPCON 13:04 → CC1 13:04 → 4A 09-10 22:05
PROVIDERS: ADMIT Internal Medicine; ATTEND Internal Medicine
PROC: 0BH17EZ Insertion of Endotracheal Airway into Trachea, Via Natural or Artificial Opening (ICD-10-PCS; principal; 2020-09-09)
PROC: 5A1945Z Respiratory Ventilation, 24-96 Consecutive Hours (ICD-10-PCS; 2020-09-09)
DX: A41.9 Sepsis, unspecified organism (principal); J69.0 Pneumonitis due to inhalation of food and vomit; J96.01 Acute respiratory failure with hypoxia; E87.1 Hypo-osmolality and hyponatremia; Z20.822 Contact with and (suspected) exposure to COVID-19; G40.901 Epilepsy, unspecified, not intractable, with status epilepticus; M81.0 Age-related osteoporosis without current pathological fracture; M19.90 Unspecified osteoarthritis, unspecified site; R74.01 Elevation of levels of liver transaminase levels; D63.8 Anemia in other chronic diseases classified elsewhere; F10.10 Alcohol abuse, uncomplicated; E11.9 Type 2 diabetes mellitus without complications; D64.9 Anemia, unspecified; Z91.018 Allergy to other foods; Z79.899 Other long term (current) drug therapy; Z79.82 Long term (current) use of aspirin; Z79.52 Long term (current) use of systemic steroids
CPT/HCPCS: 31500; 36415; 70250; 70450; 70553; 71045; 71046; 72125; 72190; 74018; 80048; 80053; 80061; 80076; 80307; 81001; 82140; 82805; 82962; 84145; 85025; 85027; 85610; 85730; 87040; 87641; 93005; 94002; 94003; 95819; 96365; G0378; A9575; J0330; J0456; J0696; J1644; J1815; J1953; J2060; J2704; J7030; U0003

== ENCOUNTER 2020-10-08 17:46 | Emergency (ER) | payer OTHER ==
[2020-10-08] MEDS ORDERED: SODIUM CHLORIDE 0.9% 1000 ML 1,000 ML IV ONE (18:01)
[2020-10-08] MEDS ORDERED: LORazepam 2 MG/ML VIAL ONE (18:04)
[2020-10-08] MEDS ORDERED: levETIRAcetam 1,500 MG in DEXTROSE 5% IN WATER 100 ML IV ONE (18:30)
[2020-10-08 19:28] LABS: Alanine Aminotransferase 28 units/L (7-56); Albumin 4.2 g/dL (3.9-5); BUN/Creatinine Ratio 14; Bilirubin,Direct 0.3 mg/dL (0-0.2); Blood Urea Nitrogen 7 mg/dL (9-20); Hemolysis Index 10
[2020-10-08 19:30] LABS: Basophils # (Auto) 0.1 K/mm3 (0.0-0.1); Basophils % (Auto) 0.8 % (0.0-1.8); Hematocrit 40.2 % (35.5-45.6); Hemoglobin 13.6 gm/dl (11.8-15.2); Lymphocytes # (Auto) 1.2 K/mm3 (1.2-5.4); Lymphocytes % (Auto) 12.6 % (13.4-35.0); Mean Corpuscular HGB Conc 34 % (32-34); Mean Corpuscular Volume 99 fl (84-94); Monocytes # (Auto) 0.7 K/mm3 (0.0-0.8); Monocytes % (Auto) 7.2 % (0.0-7.3); Platelet Count 239 K/mm3 (140-440); Red Blood Count 4.06 M/mm3 (3.65-5.03); Red Cell Distribution Width 15.6 % (13.2-15.2)
[2020-10-08 19:33] LABS: Bilirubin,Urine NEG (Negative); Blood,Urine NEG (Negative); Color,Urine Yellow (Yellow); Mucus,Urine FEW /HPF; Protein,Urine <15 mg/dL mg/dL (Negative); WBC,Urine < 1.0 /HPF (0.0-6.0)
[2020-10-08 19:40] LABS: Amphetamine Screen,Urine Negative; Benzodiazepines Screen,Urine Negative; Methadone Screen,Urine Negative; Opiate Screen,Urine Negative
[2020-10-08 19:51] LABS: Cannabinoid Screen,Urine Positive; Cocaine Screen,Urine Positive
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
[2020-10-09 00:30] VITALS: BP 143/74
== END 2020-10-09 00:52 ==
LOC: ED 17:46
DX: R56.9 Unspecified convulsions (principal); F14.10 Cocaine abuse, uncomplicated; Z79.899 Other long term (current) drug therapy; Z91.018 Allergy to other foods
CPT/HCPCS: 36415; 70450; 74176; 80048; 80076; 80307; 81001; 82962; 85025; 96374; 99285; J1953; J2060; J7030; 80320; G0480